=== PATIENT | female | born 1960 | race Two or more races ===

== ENCOUNTER 2018-12-23 07:16 | Emergency (ER) | payer OTHER ==
[~2018-12-23] VITALS: Ht 152.4 cm; Wt 57.2 kg
[2018-12-23 07:21] VITALS: BP 165/70
[2018-12-23] MEDS ORDERED: LORAZEPAM INJ 2 MG/ML VIAL IM ONE (08:00)
== END 2018-12-23 08:41 | disposition home or self-care (01) ==
LOC: ER 07:16
DX: F41.9 Anxiety disorder, unspecified (principal); I51.7 Cardiomegaly
CPT/HCPCS: 71045; 93005; 96372; 99284; J2060